=== PATIENT | female | born 1995 | race Two or more races ===

== ENCOUNTER 2019-09-30 13:59 | Emergency (ER) | payer OTHER ==
[~2019-09-30] VITALS: Ht 157.5 cm; Wt 53.0 kg
--- NOTE | 2019-09-30 14:09 | NUR ---
THIS RN PRESENT DURING EKG WITH TECH. PT TOLERATED WITH NO COMPLICATIONS
--- NOTE | 2019-09-30 14:25 | NUR ---
VITALS AND EKG OBTAINED BY THIS TECH
[2019-09-30] MEDS ORDERED: ACETAMINOPHEN 500 MG TABLET ONE (14:29)
[2019-09-30] MEDS ORDERED: SODIUM CHLORIDE 0.9% 1,000ML IVBOLUS ONE (14:30)
[2019-09-30] MEDS ORDERED: SODIUM CHLORIDE FLUSH 10ML SYR IVF ONE (14:30)
--- NOTE | 2019-09-30 14:59 | NUR ---
PT TO RM AT THIS TIME, PT WITH C/O FEVER STARTING LAST NIGHT, 100.7. PT DENIES COUGH TODAY ALTHOUGH HAD DRY COUGH LAST NIGHT. PT DENIES SOB, CP. PT STATES SHE WAS RECENTLY AROUND HER PARENTS WHO WERE "SICK" WITH RESPIRATORY SYMPTOMS. PT TO BP, CONT PULSE OX PIV ESTABLISHED, PT MEDICATED PER MAR
[2019-09-30] MEDS ORDERED: ACETAMINOPHEN 500 MG TABLET PO ONE (15:00)
[2019-09-30 15:01] LABS: RAPID INFLUENZA A Negative (Negative); RAPID INFLUENZA B Negative (Negative)
[2019-09-30 15:03] LABS: BASOPHILS # (AUTO) 0.03 x10^3/uL (0-0.1); BASOPHILS % (AUTO) 0 % (0-1); EOSINOPHILS # (AUTO) 0.01 x10^3/uL (0-0.4); EOSINOPHILS % (AUTO) 0 % (1-7); LYMPHOCYTES # (AUTO) 0.86 x10^3/uL (1-3.4); LYMPHOCYTES % (AUTO) 15 % (22-44); MD NO; MEAN CORPUSCULAR HEMOGLOBIN 29.2 pg (27.0-34.8); MEAN CORPUSCULAR HGB CONC 33.8 g/dL (32.4-35.8); MEAN CORPUSCULAR VOLUME 86.6 fL (80-100); MEAN PLATELET VOLUME 9.7 fL (7.4-10.4); MONOCYTES # (AUTO) 0.88 x10^3/uL (0.2-0.8); MONOCYTES % (AUTO) 15 % (2-9); NEUTROPHILS # (AUTO) 4.07 x10^3/uL (1.8-6.8); NEUTROPHILS % (AUTO) 70 % (42-75); PLATELET COUNT 252 x10^3/uL (130-400); RED BLOOD COUNT 4.89 x10^6/uL (3.82-5.3); RED CELL DISTRIBUTION WIDTH 14.1 % (9.6-15.2)
[2019-09-30 15:13] LABS: ALBUMIN 4.3 g/dL (3.4-5.0); ANION GAP 8 mmol/L (5-15); CALCIUM 9.5 mg/dL (8.5-10.1); CHLORIDE 107 mmol/L (98-107); CREATININE 0.83 mg/dL (0.55-1.02)
[2019-09-30 16:20] VITALS: BP 128/73
== END 2019-09-30 16:23 | disposition home or self-care (01) ==
LOC: ED 15:02
DX: B34.9 Viral infection, unspecified (principal); R94.31 Abnormal electrocardiogram [ECG] [EKG]
CPT/HCPCS: 36415; 71045; 80048; 82040; 84703; 85025; 87081; 87400; 87880; 93005; 99285; J7030